=== PATIENT | male | born 1940 | race Caucasian/White ===

== ENCOUNTER 2022-01-27 13:46 | Inpatient (IN) | payer MEDICARE, OTHER ==
[~2022-01-27] VITALS: Ht 180.3 cm; Wt 76.2 kg
[2022-01-27] MEDS ORDERED: MEMA5TAB42 PO ×2 (13:58→15:26)
[2022-01-27] MEDS ORDERED: ATOR10TA PO ×2 (13:58→15:26)
[2022-01-27] MEDS ORDERED: GLIP5TAB13 PO ×2 (13:58→15:26)
[2022-01-27] MEDS ORDERED: RIVA3CAP17 PO ×2 (13:58→15:26)
[2022-01-27] MEDS ORDERED: METF-442 PO ×2 (13:58→15:26)
[2022-01-27 15:10] LABS: BILIRUBIN,URINE NEGATIVE (NEGATIVE); COLOR,URINE YELLOW (YELLOW); LEUKOCYTE ESTERASE ,URINE NEGATIVE (NEGATIVE); NITRITE, URINE NEGATIVE (NEGATIVE); PROTEIN,URINE NEGATIVE (NEGATIVE); UGLUCOSE >=1000 mg/dL (NEGATIVE); UROBILINOGEN,URINE 0.2 EU/dL (0.2)
[2022-01-27 15:17] LABS: CALCIUM, SERUM 9.6 mg/dL (8.5-10.1); CARBON DIOXIDE 23 mmol/L (21-32); CHLORIDE 105 mmol/L (98-107); GLUCOSE 335 mg/dL (74-106); POTASSIUM 4.1 mmol/L (3.5-5.1); SODIUM SERUM 139 mmol/L (136-145); UREA NITROGEN, BLOOD 25 mg/dL (7-18)
[2022-01-27 15:23] LABS: ALANINE AMINOTRANSFERASE 16 U/L (12-78); ALBUMIN 3.8 g/dL (3.4-5.0); ALCOHOL, BLOOD < 3 mg/dL (0-0); ALKALINE PHOSPHATASE 72 U/L (46-116); ASPARTATE AMINOTRANSFERASE 10 U/L (15-37); BILIRUBIN,DIRECT 0.1 mg/dL (0.0-0.2); BILIRUBIN,TOTAL 0.7 mg/dL (0.2-1.0); TOTAL PROTEIN, SERUM 7.8 g/dL (6.4-8.2)
[2022-01-27 15:24] LABS: BASOPHILS % (AUTO) 0.4 % (0.0-2.0); EOSINOPHILS % (AUTO) 2.7 % (0.0-6.0); HEMATOCRIT 46 % (39-51); HEMOGLOBIN 15.4 g/dL (13.5-17.5); LYMPHOCYTES # (AUTO) 2.4 K/uL (0.8-4.8); LYMPHOCYTES % (AUTO) 28.1 % (20.0-44.0); MEAN CORPUSCULAR HGB CONC 33 g/dl (31.0-36.0); MEAN CORPUSCULAR VOLUME 93 fL (80-96); MONOCYTES # (AUTO) 0.7 K/uL (0.1-1.30); MONOCYTES % (AUTO) 7.7 % (2.0-12.0); NEUTROPHILS # (AUTO) 5.2 K/uL (1.8-8.9); NEUTROPHILS % (AUTO) 61.1 % (43.0-81.0); PLATELET COUNT (AUTO) 242 K/uL (150-450); RED BLOOD CELL COUNT(AUTO) 4.98 MIL/uL (4.5-6.0); WHITE BLOOD COUNT (AUTO) 8.6 K/uL (4.3-11.0)
[2022-01-27 15:26] LABS: ACETAMINOPHEN < 2 ug/ml (10-30)
[2022-01-27] MEDS ORDERED: MULT-16 PO (15:26)
[2022-01-27] MEDS ORDERED: DOCU-141 PO (15:26)
[2022-01-27] MEDS ORDERED: QUET100T PO (15:26)
[2022-01-27] MEDS ORDERED: CHOL100043 PO (15:26)
[2022-01-27 15:38] LABS: SERUM AMMONIA 11 umol/L (11-32)
[2022-01-27] MEDS ORDERED: AZITHROMYCIN 500 MG in IV D5W 250 ML IV ONE (17:00)
[2022-01-27] MEDS ORDERED: IV NS 0.9% 1,000 ML BAG IV ONE (17:00)
[2022-01-27] MEDS ORDERED: CEFTRIAXONE 1GM BAG (ER ONLY) 50 ML IV ONE ×2 (18:12→19:00)
[2022-01-27] MEDS ORDERED: ACETAMINOPHEN 325 MG TABLET PO PRN (18:30)
[2022-01-27] MEDS ORDERED: Z GUARD REMEDY 4 OZ OINT TP PRN (18:30)
[2022-01-27] MEDS ORDERED: IV LR 1000 ML 1,000 ML IV PRN (18:30)
[2022-01-27] MEDS ORDERED: ONDANSETRON HCL/PF 4 MG/2 ML VIAL IVP PRN (18:30)
[2022-01-27 18:38] VITALS: BP 126/72
[2022-01-27] MEDS: IV NS 0.9% 1,000 ML IV PRN (19:34)
[2022-01-27] MEDS: ENOXAPARIN SODIUM 40 MG/0.4 ML DISP.SYRIN SQ SCH (19:37)
[2022-01-27 20:00] VITALS: BP 129/70
[2022-01-27] MEDS: DOXYCYCLINE 100 MG in IV D5W 100 ML IV SCH (21:00)
[2022-01-27] MEDS: MEMANTINE HCL 5 MG TABLET PO SCH (21:18)
[2022-01-28] VITALS: BP 125/71
[2022-01-28 04:00] VITALS: BP 140/72
[2022-01-28] MEDS: IV NS 0.9% 1,000 ML IV PRN (06:26)
[2022-01-28 07:03] LABS: BASOPHILS % (AUTO) 0.5 % (0.0-2.0); EOSINOPHILS % (AUTO) 3.1 % (0.0-6.0); HEMATOCRIT 41 % (39-51); HEMOGLOBIN 13.8 g/dL (13.5-17.5); LYMPHOCYTES # (AUTO) 1.9 K/uL (0.8-4.8); LYMPHOCYTES % (AUTO) 29.5 % (20.0-44.0); MEAN CORPUSCULAR HGB CONC 34 g/dl (31.0-36.0); MEAN CORPUSCULAR VOLUME 92 fL (80-96); MONOCYTES # (AUTO) 0.5 K/uL (0.1-1.30); MONOCYTES % (AUTO) 7.8 % (2.0-12.0); NEUTROPHILS # (AUTO) 3.9 K/uL (1.8-8.9); NEUTROPHILS % (AUTO) 59.1 % (43.0-81.0); PLATELET COUNT (AUTO) 218 K/uL (150-450); RED BLOOD CELL COUNT(AUTO) 4.48 MIL/uL (4.5-6.0); WHITE BLOOD COUNT (AUTO) 6.6 K/uL (4.3-11.0)
[2022-01-28 08:00] VITALS: BP 134/77
[2022-01-28 08:04] LABS: ALBUMIN 3.1 g/dL (3.4-5.0); BILIRUBIN,TOTAL 0.9 mg/dL (0.2-1.0); CALCIUM, SERUM 8.2 mg/dL (8.5-10.1); CREATININE 0.7 mg/dL (0.6-1.3); MAGNESIUM 2.1 mg/dL (1.8-2.4); PHOSPHORUS 3.2 mg/dL (2.5-4.9); POTASSIUM 3.9 mmol/L (3.5-5.1); TOTAL PROTEIN, SERUM 6.5 g/dL (6.4-8.2)
[2022-01-28 08:13] LABS: THYROID STIMULATING HORMONE 1.775 uIU/mL (0.358-3.74)
[2022-01-28] MEDS: RIVASTIGMINE TARTRATE 1.5 MG CAPSULE PO SCH ×2 (08:35→17:10)
[2022-01-28] MEDS: PANTOPRAZOLE 40 MG TABLET.DR PO SCH (08:35)
[2022-01-28] MEDS: MEMANTINE HCL 5 MG TABLET PO SCH ×2 (08:35→20:02)
[2022-01-28] MEDS: DOCUSATE SODIUM 100 MG CAPSULE PO SCH (08:36)
[2022-01-28] MEDS: QUETIAPINE FUMARATE 100 MG TABLET PO SCH ×2 (08:36→17:10)
[2022-01-28] MEDS: CHOLECALCIFEROL 1,000 UNIT TABLET (VIT D3) PO SCH (08:36)
[2022-01-28] MEDS ORDERED: glipiZIDE 5 MG TABLET PO SCH (09:00)
[2022-01-28] MEDS: DOXYCYCLINE 100 MG in IV D5W 100 ML IV SCH (09:28)
[2022-01-28 12:00] VITALS: BP 125/75
[2022-01-28] MEDS ORDERED: DEXTROSE 50%-WATER 50 ML DISP.SYRIN IV PRN (14:00)
[2022-01-28] MEDS ORDERED: OLANZAPINE 10 MG VIAL IM ONE (14:00)
[2022-01-28 16:00] VITALS: BP 138/92
[2022-01-28] MEDS: ATORVASTATIN 10 MG TABLET PO SCH (17:12)
[2022-01-28] MEDS: CEFTRIAXONE 1 G in IV D5W 50 ML IV SCH (17:21)
[2022-01-28] MEDS: ENOXAPARIN SODIUM 40 MG/0.4 ML DISP.SYRIN SQ SCH (17:33)
[2022-01-28 20:00] VITALS: BP 134/79
[2022-01-28] MEDS: DOXYCYCLINE HYCLATE (100 MG) 100 MG TABLET PO SCH (20:02)
[2022-01-29] VITALS: BP 113/88
[2022-01-29 04:00] VITALS: BP 141/75
[2022-01-29 07:00] VITALS: BP 148/70
[2022-01-29 07:25] LABS: BASOPHILS % (AUTO) 0.4 % (0.0-2.0); EOSINOPHILS % (AUTO) 4.1 % (0.0-6.0); HEMATOCRIT 40 % (39-51); HEMOGLOBIN 13.7 g/dL (13.5-17.5); LYMPHOCYTES # (AUTO) 1.6 K/uL (0.8-4.8); LYMPHOCYTES % (AUTO) 28.6 % (20.0-44.0); MEAN CORPUSCULAR HGB CONC 35 g/dl (31.0-36.0); MEAN CORPUSCULAR VOLUME 91 fL (80-96); MONOCYTES # (AUTO) 0.4 K/uL (0.1-1.30); MONOCYTES % (AUTO) 7.8 % (2.0-12.0); NEUTROPHILS # (AUTO) 3.3 K/uL (1.8-8.9); NEUTROPHILS % (AUTO) 59.1 % (43.0-81.0); PLATELET COUNT (AUTO) 207 K/uL (150-450); RED BLOOD CELL COUNT(AUTO) 4.39 MIL/uL (4.5-6.0); WHITE BLOOD COUNT (AUTO) 5.6 K/uL (4.3-11.0)
[2022-01-29 07:36] LABS: CALCIUM, SERUM 8.3 mg/dL (8.5-10.1); CREATININE 0.7 mg/dL (0.6-1.3); PHOSPHORUS 3.3 mg/dL (2.5-4.9); POTASSIUM 3.8 mmol/L (3.5-5.1)
[2022-01-29 08:00] VITALS: BP 148/70
[2022-01-29] MEDS: CHOLECALCIFEROL 1,000 UNIT TABLET (VIT D3) PO SCH (08:14)
[2022-01-29] MEDS: RIVASTIGMINE TARTRATE 1.5 MG CAPSULE PO SCH ×2 (08:14→17:15)
[2022-01-29] MEDS: DOXYCYCLINE HYCLATE (100 MG) 100 MG TABLET PO SCH ×2 (08:14→20:56)
[2022-01-29] MEDS: PANTOPRAZOLE 40 MG TABLET.DR PO SCH (08:14)
[2022-01-29] MEDS: BLOOD SUGAR DIAGNOSTIC 1 EACH STRIP IN SCH ×4 (08:14→22:17)
[2022-01-29] MEDS: MEMANTINE HCL 5 MG TABLET PO SCH ×2 (08:14→20:56)
[2022-01-29] MEDS: QUETIAPINE FUMARATE 100 MG TABLET PO SCH ×2 (08:14→17:15)
[2022-01-29] MEDS: DOCUSATE SODIUM 100 MG CAPSULE PO SCH (08:15)
[2022-01-29] MEDS: INSULIN REGULAR, HUMAN 100 UNIT/ML 3 ML VIAL SQ PRN ×4 (08:16→22:19)
[2022-01-29 16:00] VITALS: BP 126/83
[2022-01-29] MEDS: CEFTRIAXONE 1 G in IV D5W 50 ML IV SCH (17:12)
[2022-01-29] MEDS: ATORVASTATIN 10 MG TABLET PO SCH (17:14)
[2022-01-29] MEDS: ENOXAPARIN SODIUM 40 MG/0.4 ML DISP.SYRIN SQ SCH (17:44)
[2022-01-29 20:00] VITALS: BP 126/64
[2022-01-30 04:00] VITALS: BP 128/62
[2022-01-30] MEDS: PANTOPRAZOLE 40 MG TABLET.DR PO SCH (07:44)
[2022-01-30] MEDS: BLOOD SUGAR DIAGNOSTIC 1 EACH STRIP IN SCH ×2 (08:08→11:47)
[2022-01-30] MEDS: INSULIN REGULAR, HUMAN 100 UNIT/ML 3 ML VIAL SQ PRN ×2 (08:13→11:49)
[2022-01-30] MEDS: CHOLECALCIFEROL 1,000 UNIT TABLET (VIT D3) PO SCH (09:24)
[2022-01-30] MEDS: DOXYCYCLINE HYCLATE (100 MG) 100 MG TABLET PO SCH (09:24)
[2022-01-30] MEDS: DOCUSATE SODIUM 100 MG CAPSULE PO SCH (09:24)
[2022-01-30] MEDS: MEMANTINE HCL 5 MG TABLET PO SCH (09:24)
[2022-01-30] MEDS: RIVASTIGMINE TARTRATE 1.5 MG CAPSULE PO SCH (09:24)
[2022-01-30] MEDS: QUETIAPINE FUMARATE 100 MG TABLET PO SCH (09:24)
[2022-01-30 11:00] VITALS: BP 172/96
[2022-01-30 12:00] VITALS: BP 172/96
[2022-01-30] MEDS ORDERED: DOXY-326 PO (13:06)
[2022-01-30] MEDS ORDERED: CEFU500T66 PO (13:06)
[2022-01-30] MEDS ORDERED: ALPRAZOLAM 0.5 MG TABLET PO ONE (14:00)
== END 2022-01-30 16:27 | DRG 193 ==
LOC: ER 13:51 → TELE1 17:41 → MEDSG1 01-29 07:29
PROVIDERS: ADMIT Nurse Practitioner Acute Care; ATTEND Nurse Practitioner Acute Care
DX: J15.9 Unspecified bacterial pneumonia (principal); G93.41 Metabolic encephalopathy; N17.0 Acute kidney failure with tubular necrosis; E87.2 Acidosis; R62.7 Adult failure to thrive; E11.65 Type 2 diabetes mellitus with hyperglycemia; Z20.822 Contact with and (suspected) exposure to COVID-19; E78.5 Hyperlipidemia, unspecified; I10 Essential (primary) hypertension; F03.90 Unspecified dementia, unspecified severity, without behavioral disturbance, psychotic disturbance, mood disturbance, and anxiety; Z79.84 Long term (current) use of oral hypoglycemic drugs; Z79.899 Other long term (current) drug therapy; F29 Unspecified psychosis not due to a substance or known physiological condition
CPT/HCPCS: 36415; 70450-TC; 71045-TC; 80048-TC; 80053-TC; 80061-TC; 80076-TC; 82140-TC; 82962-TC; 83540-TC; 83605-TC; 83735-TC; 84100-TC; 84443-TC; 84484-TC; 85025-TC; 85730-TC; 87040-TC; C9803; G0378; G0480; J0456; J0696; J1650; J1815; J3490; J7030; J7050; J7060

== ENCOUNTER 2022-04-25 15:02 | Emergency (ER) | payer MEDICARE ==
[~2022-04-25] VITALS: Ht 180.3 cm; Wt 75.3 kg
[~2022-04-25 15:02] MED LIST: ATOR10TA PO; CEFU500T66 PO; CHOL100043 PO; DOCU-141 PO; DOXY-326 PO; GLIP5TAB13 PO; MEMA5TAB42 PO; METF-442 PO; MULT-16 PO; QUET100T PO; RIVA3CAP17 PO
--- NOTE | 2022-04-25 16:01 | NUR ---
TO ER BED 10, DROPPED OFF BY FACILITY PT HAS ABDOMINAL PAIN X1 WEEK AND ADVANCED MEMORY LOSS X1 DAY, CONFUSED, CONNECTED TO MONITOR, AWAITING MD SEGURA
--- NOTE | 2022-04-25 16:56 | NUR ---
LAB AT BEDSIDE
[2022-04-25 17:02] LABS: BILIRUBIN,URINE NEGATIVE (NEGATIVE); COLOR,URINE YELLOW (YELLOW); LEUKOCYTE ESTERASE ,URINE NEGATIVE (NEGATIVE); NITRITE, URINE NEGATIVE (NEGATIVE); PH,URINE 5.5 (5.0-8.0); PROTEIN,URINE NEGATIVE (NEGATIVE); UGLUCOSE >=1000 mg/dL (NEGATIVE); UROBILINOGEN,URINE 0.2 EU/dL (0.2)
[2022-04-25 17:08] LABS: BASOPHILS # (AUTO) 0.1 K/uL (0.0-0.2); BASOPHILS % (AUTO) 0.9 % (0.0-2.0); EOSINOPHILS % (AUTO) 2.4 % (0.0-6.0); HEMATOCRIT 44 % (39-51); HEMOGLOBIN 14.7 g/dL (13.5-17.5); LYMPHOCYTES # (AUTO) 2.3 K/uL (0.8-4.8); LYMPHOCYTES % (AUTO) 33.4 % (20.0-44.0); MEAN CORPUSCULAR HGB CONC 34 g/dl (31.0-36.0); MEAN CORPUSCULAR VOLUME 92 fL (80-96); MONOCYTES # (AUTO) 0.6 K/uL (0.1-1.30); MONOCYTES % (AUTO) 8.4 % (2.0-12.0); NEUTROPHILS # (AUTO) 3.8 K/uL (1.8-8.9); NEUTROPHILS % (AUTO) 54.9 % (43.0-81.0); PLATELET COUNT (AUTO) 253 K/uL (150-450); RED BLOOD CELL COUNT(AUTO) 4.75 MIL/uL (4.5-6.0)
[2022-04-25 17:33] LABS: CREATININE 0.9 mg/dL (0.6-1.3); POTASSIUM 4.1 mmol/L (3.5-5.1)
--- NOTE | 2022-04-25 17:34 | NUR ---
COVID SWAB DONE AND SENT TO LAB
--- NOTE | 2022-04-25 17:37 | NUR ---
PER LAB GLUCOSE 411, MD AWARE
[2022-04-25 17:53] LABS: ALBUMIN 3.5 g/dL (3.4-5.0); BILIRUBIN,DIRECT 0.1 mg/dL (0.0-0.2); BILIRUBIN,TOTAL 0.7 mg/dL (0.2-1.0); TOTAL PROTEIN, SERUM 7.5 g/dL (6.4-8.2)
[2022-04-25] MEDS ORDERED: INSULIN REGULAR, HUMAN 100 UNIT/ML 10 ML VIAL ONE (18:07)
[2022-04-25] MEDS ORDERED: POTASSIUM CHLORIDE 20 MEQ TAB.PRT.SR PO ONE (18:07)
[2022-04-25] MEDS: INSULIN REGULAR, HUMAN 100 UNIT/ML 10 ML VIAL SQ ONE (18:09)
[2022-04-25] MEDS: POTASSIUM CHLORIDE 20 MEQ TAB.PRT.SR PO ONE (18:12)
--- NOTE | 2022-04-25 18:13 | NUR ---
[facility] TRANSPORT ETA [facility].
--- NOTE | 2022-04-25 18:24 | NUR ---
CALLED HILDA FOR REPORT, NURSE WAS UNAVAILABLE, INFORMED FACILITY PT WILL BE GOING BACK TO THE FACILITY.
--- NOTE | 2022-04-25 18:51 | NUR ---
BLOOD SUGAR 317. LAW AWARE WITH NO NEW ORDERS. OK TO DISCHARGE THE PATIENT PER LAW.
--- NOTE | 2022-04-25 18:52 | NUR ---
REPORT GIVEN TO AMBULANCE STAFF
--- NOTE | 2022-04-25 18:52 | NUR ---
Patient discharged to home in stable condition. Written and verbal after care instructions given. Patient verbalizes understanding of instruction.
[2022-04-25 18:53] VITALS: BP 131/74
[2022-04-29] MEDS ORDERED: INSU100I30 SQ (11:28)
[2022-04-29] MEDS ORDERED: INSU100V28 SQ (11:32)
== END 2022-04-25 18:56 ==
LOC: ER 15:07
DX: E11.65 Type 2 diabetes mellitus with hyperglycemia (principal); Z79.84 Long term (current) use of oral hypoglycemic drugs; F03.90 Unspecified dementia, unspecified severity, without behavioral disturbance, psychotic disturbance, mood disturbance, and anxiety; E78.5 Hyperlipidemia, unspecified; I10 Essential (primary) hypertension; Z20.822 Contact with and (suspected) exposure to COVID-19
CPT/HCPCS: 99291; 87426; 96372; 85025; 80048; 83690; 80076; 81003; 36415; 82962; J1815; C9803

== ENCOUNTER 2022-04-27 14:58 | Inpatient (IN) | payer MEDICARE, OTHER ==
[~2022-04-27] VITALS: Ht 185.4 cm; Wt 73.5 kg
[2022-04-27] MEDS ORDERED: ATOR10TA PO (15:16)
[2022-04-27] MEDS ORDERED: IV NS 0.9% 1,000 ML BAG IV ONE ×2 (15:30→17:00)
--- NOTE | 2022-04-27 15:34 | NUR ---
PRINTED CIRCUIT BOARD PREASSEMBLER AT BEDSIDE FOR XRAY
--- NOTE | 2022-04-27 15:44 | NUR ---
IV LINE ESTABLISHED ON LAC #20, BLOOD DRAWN AND SENT TO LAB.
[2022-04-27 15:57] LABS: BASOPHILS % (AUTO) 0.6 % (0.0-2.0); EOSINOPHILS % (AUTO) 1.8 % (0.0-6.0); HEMATOCRIT 43 % (39-51); HEMOGLOBIN 14.2 g/dL (13.5-17.5); LYMPHOCYTES # (AUTO) 1.4 K/uL (0.8-4.8); LYMPHOCYTES % (AUTO) 25.9 % (20.0-44.0); MEAN CORPUSCULAR HGB CONC 33 g/dl (31.0-36.0); MEAN CORPUSCULAR VOLUME 92 fL (80-96); MONOCYTES # (AUTO) 0.5 K/uL (0.1-1.30); MONOCYTES % (AUTO) 8.6 % (2.0-12.0); NEUTROPHILS # (AUTO) 3.3 K/uL (1.8-8.9); NEUTROPHILS % (AUTO) 63.1 % (43.0-81.0); PLATELET COUNT (AUTO) 235 K/uL (150-450); RED BLOOD CELL COUNT(AUTO) 4.63 MIL/uL (4.5-6.0); WHITE BLOOD COUNT (AUTO) 5.3 K/uL (4.3-11.0)
[2022-04-27 16:24] LABS: ALBUMIN 3.5 g/dL (3.4-5.0); BILIRUBIN,DIRECT 0.1 mg/dL (0.0-0.2); BILIRUBIN,TOTAL 0.6 mg/dL (0.2-1.0); CALCIUM, SERUM 8.8 mg/dL (8.5-10.1); CREATININE 0.9 mg/dL (0.6-1.3); POTASSIUM 4.4 mmol/L (3.5-5.1); TOTAL PROTEIN, SERUM 7.3 g/dL (6.4-8.2)
--- NOTE | 2022-04-27 16:42 | NUR ---
URINE SAMPLE COLLECTED AND SENT TO LAB
[2022-04-27] MEDS ORDERED: INSULIN REGULAR, HUMAN 100 UNIT/ML 10 ML VIAL IV ONE (17:00)
[2022-04-27] MEDS ORDERED: INSULIN REGULAR, HUMAN 100 UNIT/ML 10 ML VIAL ONE (17:08)
[2022-04-27 17:37] LABS: BILIRUBIN,URINE NEGATIVE (NEGATIVE); COLOR,URINE YELLOW (YELLOW); LEUKOCYTE ESTERASE ,URINE NEGATIVE (NEGATIVE); NITRITE, URINE NEGATIVE (NEGATIVE); PH,URINE 5.5 (5.0-8.0); PROTEIN,URINE NEGATIVE (NEGATIVE); UGLUCOSE >=1000 mg/dL (NEGATIVE); UROBILINOGEN,URINE 0.2 EU/dL (0.2)
--- NOTE | 2022-04-27 17:43 | NUR ---
COVID SWAB COLLECTED AND SENT TO LAB
[2022-04-27 17:45] LABS: BACTERIA,URINE None seen /HPF (None Seen); RBC,URINE 0-2 /HPF (0-2); SQUAMOUS EPITHELIAL CELL,UR 0-2 /HPF (None Seen); WBC,URINE 0-2 /HPF (0-3)
--- NOTE | 2022-04-27 17:45 | NUR ---
PANEL ON-CALL PAGED AGAIN
--- NOTE | 2022-04-27 19:25 | NUR ---
BS POC ACCUCHECK AFTER INSULIN 10 UNITS: BS 330
--- NOTE | 2022-04-27 19:58 | NUR ---
REPORT GIVEN TO EKTA MalcolmW RN FOR FOUZIA
[2022-04-27 20:45] VITALS: BP 141/83
--- NOTE | 2022-04-27 20:45 | NUR ---
PT TAKEN TO [facility]W [facility]. ALL BELONGINGS WITH PT. VSS
--- NOTE | 2022-04-27 21:30 | NUR ---
PARKING METER SERVICERMANAGER RN CASE NOTES: RECEIVED PATIENT FROM ER VIA [facility] AT 2030 AWAKE, NO COMPLAIN OF PAIN AND DISCOMFORT AT THIS TIME, ON ROOM AIR SATURATING WELL, PATIENT IS A/OX2-3 AMBULATORY WANDERING AND NEEDS TO BE REDIRECTED, SKIN ASSESSMENT DONE PICTURE TAKEN AND DOCUMENTED, INVENTORIES DONE, PATIENT WAS ORIENTED TO ROOM REMIND TO USE CALL LIGHTS WHEN NEEDED ASSISTANCE, V/S ARE WNL, ON TELE MONITOR-[id number], WITH IV LINE AT LAC #20 WITH ONGOING 0.9NSS 500ML WIDE OPEN THEN 0.9NSS@100ML/HR INFUSING WELL, PATIENT WAS PLACED COMFORTABLY IN BED, KEPT CLEAN AND DRY ALL NEEDS MET WILL CONTINUE TO MONITOR.
[2022-04-27] MEDS ORDERED: Z GUARD REMEDY 4 OZ OINT TP PRN (22:00)
[2022-04-27] MEDS ORDERED: IV NS 0.9% 500 ML IV ONE (22:00)
[2022-04-27] MEDS ORDERED: ONDANSETRON HCL/PF 4 MG/2 ML VIAL IVP PRN (22:00)
[2022-04-27] MEDS ORDERED: DEXTROSE 50%-WATER 50 ML DISP.SYRIN IV PRN (22:00)
[2022-04-27] MEDS ORDERED: ACETAMINOPHEN 325 MG TABLET PO PRN (22:00)
[2022-04-27] MEDS: BLOOD SUGAR DIAGNOSTIC 1 EACH STRIP IN SCH (22:00)
[2022-04-27] MEDS ORDERED: IV NS 0.9% 1,000 ML IV PRN (22:00)
[2022-04-27] MEDS ORDERED: INSULIN REGULAR, HUMAN 100 UNIT/ML 3 ML VIAL ONE (22:51)
[2022-04-27] MEDS: ENOXAPARIN SODIUM 40 MG/0.4 ML DISP.SYRIN SQ SCH (22:57)
[2022-04-27] MEDS: INSULIN REGULAR, HUMAN 100 UNIT/ML 3 ML VIAL SQ PRN (23:01)
[2022-04-28] MEDS: BLOOD SUGAR DIAGNOSTIC 1 EACH STRIP IN SCH ×6 (01:00→21:35)
[2022-04-28] MEDS: INSULIN REGULAR, HUMAN 100 UNIT/ML 3 ML VIAL SQ PRN ×5 (01:50→21:27)
--- NOTE | 2022-04-28 05:35 | NUR ---
RN NOTES: BLOOD SUGAR-82 NO INSULIN GIVEN PER SLIDING SCALE
--- NOTE | 2022-04-28 06:08 | NUR ---
MS RN CLOSING NOTES: RECEIVED PATIENT SLEEP IN BED COMFORTABLY, BED IN LOW POSITION, CALL LIGHTS WITHIN REACH, ON ROOM AIR SATURATING WELL, WITH IV LINE AT LAC#20 WITH ONGOING NSS@100ML/HR INFUSING WELL, PATIENT HAS EPISODE OF CONFUSION AND NEEDS TO BE REDIRECTED, PATIENT KEPT CLEAN AND DRY ALL NEEDS MET ENDORSE TO INCOMING SHIFT.
[2022-04-28 06:21] LABS: BASOPHILS % (AUTO) 0.5 % (0.0-2.0); EOSINOPHILS % (AUTO) 2.3 % (0.0-6.0); HEMATOCRIT 39 % (39-51); HEMOGLOBIN 13.4 g/dL (13.5-17.5); LYMPHOCYTES # (AUTO) 3.8 K/uL (0.8-4.8); LYMPHOCYTES % (AUTO) 48.4 % (20.0-44.0); MEAN CORPUSCULAR HGB CONC 35 g/dl (31.0-36.0); MEAN CORPUSCULAR VOLUME 90 fL (80-96); MONOCYTES # (AUTO) 0.8 K/uL (0.1-1.30); MONOCYTES % (AUTO) 9.7 % (2.0-12.0); NEUTROPHILS # (AUTO) 3.1 K/uL (1.8-8.9); NEUTROPHILS % (AUTO) 39.1 % (43.0-81.0); PLATELET COUNT (AUTO) 243 K/uL (150-450); RED BLOOD CELL COUNT(AUTO) 4.28 MIL/uL (4.5-6.0); WHITE BLOOD COUNT (AUTO) 7.8 K/uL (4.3-11.0)
[2022-04-28 06:37] LABS: CALCIUM, SERUM 8.3 mg/dL (8.5-10.1); CARBON DIOXIDE 26 mmol/L (21-32); CHLORIDE 115 mmol/L (98-107); CREATININE 0.6 mg/dL (0.6-1.3); GLUCOSE 74 mg/dL (74-106); MAGNESIUM 2.1 mg/dL (1.8-2.4); POTASSIUM 3.3 mmol/L (3.5-5.1); SODIUM SERUM 147 mmol/L (136-145); UREA NITROGEN, BLOOD 21 mg/dL (7-18)
--- NOTE | 2022-04-28 07:30 | NUR ---
MS RN OPENING NOTES RECEIVED PATIENT ON BED, AWAKE AND A/O X4. ON ROOM AIR TOLERATING WELL. NO SOB NOTED. NOT IN DISTRESS. WITH NO COMPLAINTS OF PAIN OR DISCOMFORT AT THIS TIME. WITH IV ACCESS AT THE LEFT AC G20 WITH NS AT 100ML/HR INFUSING WELL. SAFETY MEASURES IN PLACED. CALL LIGHT WITHIN REACH. BED ON LOWEST LOCKED POSITION, SIDE RAILS UP X2. WILL CONTINUE TO MONITOR.
[2022-04-28 08:00] VITALS: BP 120/57
[2022-04-28] MEDS: RIVASTIGMINE TARTRATE 1.5 MG CAPSULE PO SCH ×2 (09:17→21:29)
[2022-04-28] MEDS: MEMANTINE HCL 5 MG TABLET PO SCH ×2 (09:17→21:28)
[2022-04-28] MEDS: QUETIAPINE FUMARATE 100 MG TABLET PO SCH ×2 (09:17→16:24)
[2022-04-28] MEDS: glipiZIDE 5 MG TABLET PO SCH ×2 (09:18→16:24)
[2022-04-28] MEDS: ATORVASTATIN 10 MG TABLET PO SCH (09:18)
[2022-04-28] MEDS ORDERED: POTASSIUM CHLORIDE 20 MEQ TAB.PRT.SR PO SCH (09:30)
[2022-04-28 17:00] VITALS: BP 107/61
--- NOTE | 2022-04-28 18:50 | NUR ---
MS RN CLOSING NOTES PATIENT ON BED, AWAKE AND A/O X4. ON ROOM AIR TOLERATING WELL. NO SOB NOTED. NOT IN DISTRESS. WITH NO COMPLAINTS OF PAIN OR DISCOMFORT AT THIS TIME. WITH IV ACCESS AT THE LEFT AC G20 WITH NS AT 100ML/HR INFUSING WELL. DUE MEDS GIVEN. SAFETY MEASURES IN PLACED. CALL LIGHT WITHIN REACH. BED ON LOWEST LOCKED POSITION, SIDE RAILS UP X2. WILL ENDORSE TO NEXT SHIFT FOR FOUZIA.
--- NOTE | 2022-04-28 19:43 | NUR ---
RN OPENING NOTE PATIENT ASLEEP IN BED. A/OX2. NO S/S OF DISTRESS, BREATHING W/O DIFFICULTY ON ROOM AIR. LAC #20 INTACT AND PATENT W/ NS 100ML/HR. SAFETY MEASURES IN PLACE: BED LOCKED AND AT LOWEST POSITION, RAILS UP X2, CALL CASTRO WITHIN REACH. WILL CONTINUE TO MONITOR PATIENT.
[2022-04-28 20:00] VITALS: BP 115/67
[2022-04-28] MEDS: INSULIN GLARGINE, 100 UNIT/ML CARTRIDGE SQ SCH (21:28)
[2022-04-28] MEDS: ENOXAPARIN SODIUM 40 MG/0.4 ML DISP.SYRIN SQ SCH (21:28)
[2022-04-29] MEDS: BLOOD SUGAR DIAGNOSTIC 1 EACH STRIP IN SCH ×6 (00:47→20:55)
--- NOTE | 2022-04-29 06:47 | NUR ---
RN CLOSING NOTE PATIENT ASLEEP IN BED. A/OX2. NO S/S OF DISTRESS, BREATHING W/O DIFFICULTY ON ROOM AIR. LAC #20 INTACT AND PATENT W/ NS 100ML/HR. SAFETY MEASURES IN PLACE: BED LOCKED AND AT LOWEST POSITION, RAILS UP X2, CALL CASTRO WITHIN REACH. WILL ENDORSE TO THE NEXT SHIFT FOR FOUZIA.
[2022-04-29 08:00] VITALS: BP 140/78
[2022-04-29] MEDS: glipiZIDE 5 MG TABLET PO SCH ×2 (08:02→16:51)
--- NOTE | 2022-04-29 08:22 | NUR ---
MS RN OPENING NOTES PATIENT ASLEEP IN BED. A/OX2 WITH PERIODS OF CONFUSION . NO S/S OF DISTRESS, BREATHING EVENLY AND UNLABORED ON ROOM AIR. LAC GAUGE # 20 . SAFETY MEASURES IN PLACE: BED LOCKED AND AT LOWEST POSITION, RAILS UP X2, CALL CASTRO WITHIN REACH. WILL CONTINUE TO MONITOR PATIENT.
[2022-04-29 08:57] LABS: BASOPHILS % (AUTO) 0.5 % (0.0-2.0); EOSINOPHILS % (AUTO) 2.6 % (0.0-6.0); HEMATOCRIT 43 % (39-51); HEMOGLOBIN 14.5 g/dL (13.5-17.5); LYMPHOCYTES # (AUTO) 1.5 K/uL (0.8-4.8); LYMPHOCYTES % (AUTO) 26.6 % (20.0-44.0); MEAN CORPUSCULAR HGB CONC 34 g/dl (31.0-36.0); MEAN CORPUSCULAR VOLUME 91 fL (80-96); MONOCYTES # (AUTO) 0.5 K/uL (0.1-1.30); NEUTROPHILS # (AUTO) 3.6 K/uL (1.8-8.9); NEUTROPHILS % (AUTO) 62.3 % (43.0-81.0); PLATELET COUNT (AUTO) 254 K/uL (150-450); RED BLOOD CELL COUNT(AUTO) 4.74 MIL/uL (4.5-6.0); WHITE BLOOD COUNT (AUTO) 5.8 K/uL (4.3-11.0)
[2022-04-29 09:08] LABS: CALCIUM, SERUM 8.3 mg/dL (8.5-10.1); CARBON DIOXIDE 26 mmol/L (21-32); CHLORIDE 105 mmol/L (98-107); CREATININE 0.8 mg/dL (0.6-1.3); GLUCOSE 333 mg/dL (74-106); PHOSPHORUS 3.3 mg/dL (2.5-4.9); POTASSIUM 3.8 mmol/L (3.5-5.1); SODIUM SERUM 136 mmol/L (136-145); UREA NITROGEN, BLOOD 15 mg/dL (7-18)
[2022-04-29] MEDS: RIVASTIGMINE TARTRATE 1.5 MG CAPSULE PO SCH ×2 (09:49→20:44)
[2022-04-29] MEDS: INSULIN REGULAR, HUMAN 100 UNIT/ML 3 ML VIAL SQ PRN ×3 (09:49→20:58)
[2022-04-29] MEDS: ATORVASTATIN 10 MG TABLET PO SCH (09:50)
[2022-04-29] MEDS: MEMANTINE HCL 5 MG TABLET PO SCH ×2 (09:50→20:44)
[2022-04-29] MEDS: QUETIAPINE FUMARATE 100 MG TABLET PO SCH ×2 (09:50→16:51)
[2022-04-29] MEDS ORDERED: INSU100I30 SQ (11:28)
[2022-04-29] MEDS ORDERED: INSU100V28 SQ (11:32)
[2022-04-29 16:00] VITALS: BP 101/77
--- NOTE | 2022-04-29 18:45 | NUR ---
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 MD MADE AWARE, BACTROBAN OINTMENT ORDERED.
--- NOTE | 2022-04-29 19:03 | NUR ---
MS RN CLOSING NOTES PATIENT IN BED. A/OX2 WITH PERIODS OF CONFUSION . NO S/S OF DISTRESS, BREATHING EVENLY AND UNLABORED ON ROOM AIR. LAC GAUGE # 20 .ALL DUE MEDS GIVEN AND TOLERATED WELL. SAFETY MEASURES IN PLACE: BED LOCKED AND AT LOWEST POSITION, RAILS UP X2, CALL CASTRO WITHIN REACH. WILL CONTINUE TO MONITOR PATIENT.WILL ENDORSE TO CLARISSA VALLECILLO RN FOR FOUZIA
--- NOTE | 2022-04-29 19:48 | NUR ---
MS RN OPENING NOTES RECEIVED PATIENT AWAKE IN BED. A/O X2 WITH PERIODS OF CONFUSION. PT STABLE ON ROOM AIR. NO SOB OR S/S OF RESPIRATORY DISTRESS. BREATHING EVEN AND UNLABORED. IV ACCESS LAC GAUGE # 20. SAFETY PRECAUTIONS IN PLACE. BED IN LOWEST LOCKED POSITION, HOB ELEVATED, SIDE RAILS UP X2, AND CALL LIGHT AND TABLE WITHIN REACH. ALL NEEDS MET AT THIS TIME.
[2022-04-29 20:00] VITALS: BP 126/74
[2022-04-29] MEDS: ENOXAPARIN SODIUM 40 MG/0.4 ML DISP.SYRIN SQ SCH (20:45)
[2022-04-29] MEDS: MUPIROCIN OINT 2% 22 GM TUBE NS SCH (20:45)
[2022-04-29] MEDS: INSULIN GLARGINE, 100 UNIT/ML CARTRIDGE SQ SCH (21:00)
[2022-04-30] MEDS: BLOOD SUGAR DIAGNOSTIC 1 EACH STRIP IN SCH ×3 (00:31→09:41)
[2022-04-30] MEDS: INSULIN REGULAR, HUMAN 100 UNIT/ML 3 ML VIAL SQ PRN (00:34)
--- NOTE | 2022-04-30 06:50 | NUR ---
MS RN CLOSING NOTES PATIENT AWAKE IN BED. A/O X2 WITH PERIODS OF CONFUSION. PT STABLE ON ROOM AIR. NO SOB OR S/S OF RESPIRATORY DISTRESS. BREATHING EVEN AND UNLABORED. IV ACCESS LAC GAUGE # 20. ALL DUE MEDS GIVEN ORDERED. SAFETY PRECAUTIONS IN PLACE AT ALL TIMES. BED IN LOWEST LOCKED POSITION, HOB ELEVATED, SIDE RAILS UP X2, AND CALL LIGHT AND TABLE WITHIN REACH. ALL NEEDS MET AT THIS TIME AND WILL ENDORSE TO ONCOMING NURSE FOR FOUZIA.
--- NOTE | 2022-04-30 07:30 | NUR ---
MS RN OPENING NOTES: RECEIVED PT IN BED ASLEEP AND EASY TO AROUSE WITH STIMULI. A/O X 2 WITH EPISODES OF CONFUSION. NO SOB OR CARDIAC DISTRESS NOTED, AFEBRILE. NOTED WITH IV ACCESS ON LAC g20 RUNNING NS @100ML/HR, PATENT AND INTACT. KEPT RESTED ADN COMFORTABLE. SAFETY PREC MAINTAINED: BED LOCKED AND IN LOWEST POSITION. SIDE RAILS UP X 2. CALL LIGHT IN EASY REACH FOR HELP/ASSISTANCE. WILL MONITOR THE PT ACCORDINGLY.
[2022-04-30] MEDS: glipiZIDE 5 MG TABLET PO SCH (07:36)
[2022-04-30] MEDS: MUPIROCIN OINT 2% 22 GM TUBE NS SCH (09:00)
[2022-04-30] MEDS: MEMANTINE HCL 5 MG TABLET PO SCH (09:12)
[2022-04-30] MEDS: RIVASTIGMINE TARTRATE 1.5 MG CAPSULE PO SCH (09:12)
[2022-04-30] MEDS: ATORVASTATIN 10 MG TABLET PO SCH (09:12)
[2022-04-30] MEDS: QUETIAPINE FUMARATE 100 MG TABLET PO SCH (09:13)
--- NOTE | 2022-04-30 10:41 | NUR ---
DISCHARGE NOTES: DC TO SNF, ACCOMPANIED BY RESIDENTIAL MORTGAGE MANAGER VIA GURNEY. PATIENT ALERT WITH EPISODES OF CONFUSION AND FORGETFULNESS. NO SOB OR CARDIAC DISTRESS NOTED ON ROOM AIR AND TOLERATING WELL. IV ACCES REMOVED, KEPT THE IDENTIFICATION BAND IN PLACE. DC INSTRUCTIONS AND PACKET GIVEN TO RESIDENTIAL MORTGAGE MANAGER. REPORT GIVEN TO AGUSTO IRAHETA. ALL NEEDS ATTENDED. VS WNL. PT STABLE WHEN LEFT THE UNIT.
== END 2022-04-30 11:00 | DRG 637 ==
LOC: ER 15:41 → TELE 19:53 → MED 04-28 00:48
PROVIDERS: ADMIT Nurse Practitioner Acute Care; ATTEND Registered Nurse
DX: E11.65 Type 2 diabetes mellitus with hyperglycemia (principal); G93.41 Metabolic encephalopathy; N17.0 Acute kidney failure with tubular necrosis; F03.91 Unspecified dementia, unspecified severity, with behavioral disturbance; E86.0 Dehydration; I10 Essential (primary) hypertension; E78.5 Hyperlipidemia, unspecified; Z79.84 Long term (current) use of oral hypoglycemic drugs; Z79.899 Other long term (current) drug therapy
CPT/HCPCS: 36415; 71045-TC; 80048-TC; 80076-TC; 81001; 82962-TC; 83690-TC; 83735-TC; 84100-TC; 85025-TC; 87081-TC; 97116-TC; 97530-TC; C9803; G0378; J1650; J1815; J7030; J7040

== ENCOUNTER 2024-09-01 10:58 | Inpatient (IN) | payer MEDICARE, OTHER ==
[~2024-09-01] VITALS: Ht 170.2 cm; Wt 59.9 kg
[~2024-09-01 10:58] MED LIST changes: +APIX5TAB GT; +CEFE1VIA3 IV; -CEFU500T66 PO; -DOXY-326 PO; +INSU100I30 SQ; +INSU100V28 SQ; +VANC750V IV
[2024-09-01] MEDS ORDERED: ACETAMINOPHEN 650 MG/SUPP.RECT RC ONE ×2 (11:15→11:23)
[2024-09-01 11:17] LABS: BASOPHILS # (AUTO) 0.2 K/uL (0.0-0.2); BASOPHILS % (AUTO) 0.6 % (0.0-2.0); EOSINOPHILS # (AUTO) 0.1 K/uL (0.0-0.7); EOSINOPHILS % (AUTO) 0.3 % (0.0-6.0); HEMATOCRIT 32 % (39-51); HEMOGLOBIN 9.9 g/dL (13.5-17.5); LYMPHOCYTES # (AUTO) 2.1 K/uL (0.8-4.8); LYMPHOCYTES % (AUTO) 7.4 % (20.0-44.0); MEAN CORPUSCULAR HEMOGLOBIN 31 PG (26.0-33.0); MEAN CORPUSCULAR HGB CONC 31 g/dl (31.0-36.0); MEAN CORPUSCULAR VOLUME 99 fL (80-96); MONOCYTES # (AUTO) 1.3 K/uL (0.1-1.30); MONOCYTES % (AUTO) 4.7 % (2.0-12.0); NEUTROPHILS # (AUTO) 24.5 K/uL (1.8-8.9); PLATELET COUNT (AUTO) 497 K/uL (150-450); RED BLOOD CELL COUNT(AUTO) 3.22 MIL/uL (4.5-6.0); RED CELL DISTRIBUTION WIDTH 16.2 % (11.5-15.0); WHITE BLOOD COUNT (AUTO) 28.1 K/uL (4.3-11.0)
[2024-09-01] MEDS: IV NS 0.9% 1,000 ML BAG IV ONE (11:25)
[2024-09-01] MEDS: ACETAMINOPHEN 650 MG/SUPP.RECT RC ONE (11:26)
[2024-09-01 11:41] LABS: INR 1.22 (0.91-1.10); PARTIAL THROMBOPLASTIN TIME 25.4 SEC (24.3-34.3); PROTHROMBIN TIME 12.8 SECS (9.2-11.1)
[2024-09-01 11:43] LABS: LACTIC ACID 1.7 mmol/L (0.4-2.0)
[2024-09-01] MEDS: MEROPENEM 1 G in IV NS 0.9% 100 ML IV ONE (11:49)
[2024-09-01] MEDS ORDERED: INSULIN REGULAR, HUMAN 100 UNIT/ML 10 ML VIAL ONE (11:54)
[2024-09-01 12:01] LABS: APPEARANCE,URINE Clear (CLEAR); COLOR,URINE YELLOW (YELLOW); PH,URINE 5.5 (5.0-8.0)
[2024-09-01 12:02] LABS: ALANINE AMINOTRANSFERASE 20 U/L (12-78); ALBUMIN 1.9 g/dL (3.4-5.0); ALKALINE PHOSPHATASE 102 U/L (46-116); ASPARTATE AMINOTRANSFERASE 14 U/L (15-37); BILIRUBIN,DIRECT 0.1 mg/dL (0.0-0.2); BILIRUBIN,TOTAL 0.3 mg/dL (0.2-1.0); CALCIUM, SERUM 8.4 mg/dL (8.5-10.1); CARBON DIOXIDE 26 mmol/L (21-32); CHLORIDE 123 mmol/L (98-107); CREATININE 2.6 mg/dL (0.6-1.3); POTASSIUM 4.7 mmol/L (3.5-5.1); TOTAL PROTEIN, SERUM 7.8 g/dL (6.4-8.2)
[2024-09-01 12:02] LABS: BILIRUBIN,URINE NEGATIVE (NEGATIVE); BLOOD, URINE SMALL Ery/uL (NEGATIVE); KETONES,URINE NEGATIVE (NEGATIVE); LEUKOCYTE ESTERASE ,URINE TRACE (NEGATIVE); PROTEIN,URINE 100 mg/dl (NEGATIVE); UROBILINOGEN,URINE 0.2 EU/dL (0.2)
[2024-09-01 12:03] LABS: NITRITE, URINE NEGATIVE (NEGATIVE)
[2024-09-01] MEDS: INSULIN REGULAR, HUMAN 100 UNIT/ML 10 ML VIAL IV ONE (12:17)
[2024-09-01 12:18] LABS: GLUCOSE 445 mg/dL (74-106); SODIUM SERUM 158 mmol/L (136-145)
[2024-09-01 12:19] LABS: UREA NITROGEN, BLOOD 93 mg/dL (7-18)
[2024-09-01 12:41] LABS: ADD URINE CULTURE YES; BACTERIA,URINE Few /HPF (None Seen); SQUAMOUS EPITHELIAL CELL,UR None Seen /HPF (None Seen); WBC,URINE 81-100 /HPF (0-3)
[2024-09-01] MEDS ORDERED: IPRA3AMP23 NEB (12:49)
[2024-09-01] MEDS ORDERED: BISA10SU11 RC (12:49)
[2024-09-01] MEDS ORDERED: NUT.237L31 GT (12:49)
[2024-09-01] MEDS ORDERED: OXYC5TAB3 PO (12:49)
[2024-09-01] MEDS ORDERED: MULT-213 GT (12:49)
[2024-09-01] MEDS ORDERED: INSU100V3 SQ (12:49)
[2024-09-01] MEDS ORDERED: LANS30CA56 GT (12:49)
[2024-09-01] MEDS ORDERED: COLL30OI TP (12:49)
[2024-09-01] MEDS ORDERED: LACT10SO3 GT (12:49)
[2024-09-01] MEDS ORDERED: ASCO-340 GT (12:49)
[2024-09-01] MEDS ORDERED: INSU100I26 SQ (12:49)
[2024-09-01] MEDS ORDERED: ACET650S11 RC (12:49)
[2024-09-01] MEDS ORDERED: ACET160L44 PO (12:49)
[2024-09-01] MEDS ORDERED: POLY17PO4 GT (12:49)
[2024-09-01] MEDS ORDERED: ZINC220C6 GT (12:49)
[2024-09-01] MEDS ORDERED: POVI1MED TP (12:49)
[2024-09-01] MEDS ORDERED: FERR300L GT (12:49)
[2024-09-01] MEDS ORDERED: ERGO500093 PO (12:49)
[2024-09-01 14:00] VITALS: BP 104/72; TEMP 98; O2SAT 99
[2024-09-01] MEDS ORDERED: ONDANSETRON HCL/PF 4 MG/2 ML VIAL IVP PRN (14:00)
[2024-09-01] MEDS ORDERED: ACETAMINOPHEN 650 MG/SUPP.RECT RC PRN (14:00)
[2024-09-01] MEDS ORDERED: BISACODYL SUPP (10 MG) 10 MG/SUPP.RECT SUPP.RECT RC PRN (14:00)
[2024-09-01] MEDS ORDERED: ACETAMINOPHEN 325 MG TABLET PO PRN (14:00)
[2024-09-01] MEDS ORDERED: MEROPENEM 1 G in IV NS 0.9% 100 ML IV SCH (14:30)
[2024-09-01] MEDS ORDERED: DEXTROSE 50%-WATER 50 ML DISP.SYRIN IV PRN (14:30)
[2024-09-01] MEDS: IV 1/2NS 1000 ML 1,000 ML IV SCH (15:25)
[2024-09-01] MEDS: APIXABAN 5 MG TABLET GT SCH (17:29)
[2024-09-01] MEDS: FERROUS SULFATE UDC 300 MG/5 ML UDC GT SCH (17:29)
[2024-09-01] MEDS: BLOOD SUGAR DIAGNOSTIC 1 EACH STRIP IN SCH (17:55)
[2024-09-01] MEDS: INSULIN REGULAR, HUMAN 100 UNIT/ML 3 ML VIAL SQ PRN (17:56)
[2024-09-01 18:00] VITALS: BP 105/64; TEMP 97.2; O2SAT 99
[2024-09-01 19:16] LABS: CALCIUM, SERUM 8.1 mg/dL (8.5-10.1); CARBON DIOXIDE 27 mmol/L (21-32); CREATININE 2.2 mg/dL (0.6-1.3); GLUCOSE 340 mg/dL (74-106); POTASSIUM 3.6 mmol/L (3.5-5.1)
[2024-09-01 19:29] LABS: CHLORIDE 130 mmol/L (98-107); SODIUM SERUM 165 mmol/L (136-145); UREA NITROGEN, BLOOD 84 mg/dL (7-18)
[2024-09-01 22:00] VITALS: BP 114/68; TEMP 97.9; O2SAT 99
[2024-09-01] MEDS: INSULIN GLARGINE, 100 UNIT/ML CARTRIDGE SQ SCH (22:00)
[2024-09-01] MEDS: MEROPENEM 500 MG in IV NS 0.9% 50 ML IV SCH (22:32)
[2024-09-01] MEDS: GLUCERNA 1.5 1,000 ML BOTTLE GT SCH (23:18)
[2024-09-02 04:00] VITALS: BP 121/54; TEMP 97.9; O2SAT 96
[2024-09-02 08:00] VITALS: BP 111/72; TEMP 97.9; O2SAT 94
[2024-09-02] MEDS: POLYETHYLENE GLYCOL 3350 17 GM POWD.PACK GT SCH (08:17)
[2024-09-02] MEDS: ASCORBIC ACID 500 MG TABLET GT SCH (08:17)
[2024-09-02] MEDS: PANTOPRAZOLE 40 MG VIAL IV SCH (08:17)
[2024-09-02] MEDS: ZINC SULFATE 220 MG CAPSULE GT SCH (08:17)
[2024-09-02] MEDS: THERAHONEY GEL 1.5 OZ TUBE TP SCH (08:17)
[2024-09-02] MEDS: MULTIVIT W/MINERALS 1 TAB TABLET GT SCH (08:17)
[2024-09-02 08:46] LABS: BASOPHILS # (AUTO) 0.1 K/uL (0.0-0.2); BASOPHILS % (AUTO) 0.3 % (0.0-2.0); EOSINOPHILS # (AUTO) 0.2 K/uL (0.0-0.7); EOSINOPHILS % (AUTO) 0.7 % (0.0-6.0); HEMATOCRIT 28 % (39-51); HEMOGLOBIN 8.9 g/dL (13.5-17.5); LYMPHOCYTES # (AUTO) 1.8 K/uL (0.8-4.8); LYMPHOCYTES % (AUTO) 8.1 % (20.0-44.0); MEAN CORPUSCULAR HEMOGLOBIN 31 PG (26.0-33.0); MEAN CORPUSCULAR HGB CONC 31 g/dl (31.0-36.0); MEAN CORPUSCULAR VOLUME 99 fL (80-96); MONOCYTES # (AUTO) 0.7 K/uL (0.1-1.30); MONOCYTES % (AUTO) 2.9 % (2.0-12.0); PLATELET COUNT (AUTO) 415 K/uL (150-450); RED BLOOD CELL COUNT(AUTO) 2.88 MIL/uL (4.5-6.0); RED CELL DISTRIBUTION WIDTH 16.8 % (11.5-15.0); WHITE BLOOD COUNT (AUTO) 22.8 K/uL (4.3-11.0)
[2024-09-02 09:38] LABS: ALANINE AMINOTRANSFERASE 20 U/L (12-78); ALBUMIN 1.8 g/dL (3.4-5.0); ALKALINE PHOSPHATASE 97 U/L (46-116); ASPARTATE AMINOTRANSFERASE 14 U/L (15-37); BILIRUBIN,TOTAL 0.3 mg/dL (0.2-1.0); CARBON DIOXIDE 26 mmol/L (21-32); GLUCOSE 223 mg/dL (74-106); MAGNESIUM 2.7 mg/dL (1.8-2.4); PHOSPHORUS 4.2 mg/dL (2.5-4.9); POTASSIUM 3.5 mmol/L (3.5-5.1); TOTAL PROTEIN, SERUM 6.8 g/dL (6.4-8.2); UREA NITROGEN, BLOOD 78 mg/dL (7-18)
[2024-09-02 09:50] LABS: CALCIUM, SERUM 8.5 mg/dL (8.5-10.1)
[2024-09-02 09:51] LABS: CHLORIDE 131 mmol/L (98-107); SODIUM SERUM 166 mmol/L (136-145)
[2024-09-02] MEDS: IV D5W 1,000 ML IV SCH (10:46)
[2024-09-02 12:00] VITALS: BP 108/61; TEMP 97.5; O2SAT 94
[2024-09-02] MEDS: LORAZEPAM INJ 2 MG/ML VIAL IV PRN (12:07)
[2024-09-02] MEDS ORDERED: DIATR MEGLU/DIATRIZOATE SODIUM 30 ML BOTTLE (GASTROGRAPHIN) ONE (15:30)
[2024-09-02 16:00] VITALS: BP 113/87; TEMP 98.1; O2SAT 95
[2024-09-02 19:59] LABS: CHOLESTEROL 102 mg/dL (<200); CREATINE KINASE, TOTAL 33 U/L (39-308); HDL CHOLESTEROL 21 mg/dL (40-60); LDL 51 mg/dL (0-99); TRIGLYCERIDES 212 mg/dL (30-150)
[2024-09-02 20:00] VITALS: BP 117/68; TEMP 97.9; O2SAT 97
[2024-09-03] VITALS: BP 106/63; TEMP 98.1; O2SAT 99
[2024-09-03 04:00] VITALS: BP 113/63; TEMP 97.5; O2SAT 98
[2024-09-03 06:29] LABS: BASOPHILS % (AUTO) 0.2 % (0.0-2.0); EOSINOPHILS # (AUTO) 0.3 K/uL (0.0-0.7); EOSINOPHILS % (AUTO) 2.1 % (0.0-6.0); HEMATOCRIT 26 % (39-51); HEMOGLOBIN 8.3 g/dL (13.5-17.5); LYMPHOCYTES # (AUTO) 1.8 K/uL (0.8-4.8); LYMPHOCYTES % (AUTO) 11.4 % (20.0-44.0); MEAN CORPUSCULAR HEMOGLOBIN 31 PG (26.0-33.0); MEAN CORPUSCULAR HGB CONC 32 g/dl (31.0-36.0); MEAN CORPUSCULAR VOLUME 97 fL (80-96); MONOCYTES # (AUTO) 0.8 K/uL (0.1-1.30); MONOCYTES % (AUTO) 4.7 % (2.0-12.0); NEUTROPHILS % (AUTO) 81.6 % (43.0-81.0); PLATELET COUNT (AUTO) 376 K/uL (150-450); RED CELL DISTRIBUTION WIDTH 16.8 % (11.5-15.0); WHITE BLOOD COUNT (AUTO) 15.9 K/uL (4.3-11.0)
[2024-09-03 06:48] LABS: CALCIUM, SERUM 8.3 mg/dL (8.5-10.1); CARBON DIOXIDE 29 mmol/L (21-32); CREATININE 1.7 mg/dL (0.6-1.3); GLUCOSE 257 mg/dL (74-106); POTASSIUM 4.4 mmol/L (3.5-5.1); UREA NITROGEN, BLOOD 66 mg/dL (7-18)
[2024-09-03 07:42] LABS: SODIUM SERUM 164 mmol/L (136-145)
[2024-09-03 07:43] LABS: CHLORIDE 128 mmol/L (98-107)
[2024-09-03 08:00] VITALS: BP 125/75; TEMP 98.2; O2SAT 100
[2024-09-03] MEDS: VANCOMYCIN 750 MG in IV D5W 250 ML IV SCH (08:21)
[2024-09-03] MEDS: OLANZAPINE 2.5 MG TABLET PO SCH (09:55)
[2024-09-03 12:00] VITALS: BP 125/75; TEMP 98.2; O2SAT 100
[2024-09-03] MEDS: GLUCERNA 1.2 1,000 ML BOTTLE NG SCH (12:03)
[2024-09-03 16:00] VITALS: BP 125/75; TEMP 98.1; O2SAT 100
[2024-09-03 20:00] VITALS: BP 113/62; TEMP 98; O2SAT 99
[2024-09-03] MEDS: INSULIN GLARGINE, 100 UNIT/ML CARTRIDGE SQ SCH (22:06)
[2024-09-04] VITALS: BP 113/63; TEMP 98.1; O2SAT 99
[2024-09-04 04:00] VITALS: BP 114/67; TEMP 98.5; O2SAT 99
[2024-09-04 06:37] LABS: BASOPHILS # (AUTO) 0.1 K/uL (0.0-0.2); BASOPHILS % (AUTO) 0.5 % (0.0-2.0); EOSINOPHILS # (AUTO) 0.7 K/uL (0.0-0.7); EOSINOPHILS % (AUTO) 5.6 % (0.0-6.0); HEMATOCRIT 24 % (39-51); HEMOGLOBIN 7.8 g/dL (13.5-17.5); LYMPHOCYTES # (AUTO) 1.6 K/uL (0.8-4.8); LYMPHOCYTES % (AUTO) 13.7 % (20.0-44.0); MEAN CORPUSCULAR HEMOGLOBIN 31 PG (26.0-33.0); MEAN CORPUSCULAR HGB CONC 32 g/dl (31.0-36.0); MEAN CORPUSCULAR VOLUME 97 fL (80-96); MONOCYTES # (AUTO) 0.6 K/uL (0.1-1.30); NEUTROPHILS # (AUTO) 8.8 K/uL (1.8-8.9); NEUTROPHILS % (AUTO) 75.2 % (43.0-81.0); PLATELET COUNT (AUTO) 322 K/uL (150-450); RED BLOOD CELL COUNT(AUTO) 2.52 MIL/uL (4.5-6.0); RED CELL DISTRIBUTION WIDTH 16.4 % (11.5-15.0); WHITE BLOOD COUNT (AUTO) 11.7 K/uL (4.3-11.0)
[2024-09-04 06:43] LABS: CALCIUM, SERUM 7.6 mg/dL (8.5-10.1); CARBON DIOXIDE 28 mmol/L (21-32); CHLORIDE 124 mmol/L (98-107); CREATININE 1.6 mg/dL (0.6-1.3); GLUCOSE 182 mg/dL (74-106); POTASSIUM 3.7 mmol/L (3.5-5.1); UREA NITROGEN, BLOOD 48 mg/dL (7-18)
[2024-09-04 07:13] LABS: SODIUM SERUM 159 mmol/L (136-145)
[2024-09-04 08:00] VITALS: BP 109/82; TEMP 98.1; O2SAT 99
[2024-09-04] MEDS: OLANZAPINE 2.5 MG TABLET GT SCH (09:08)
[2024-09-04] MEDS: PANTOPRAZOLE 40 MG/PACK PACK GT SCH (09:11)
[2024-09-04] MEDS: VANCOMYCIN 750 MG in IV D5W 250 ML IV SCH (09:15)
[2024-09-04] MEDS: MEROPENEM 1 G in IV NS 0.9% 100 ML IV SCH (10:38)
[2024-09-04 12:00] VITALS: BP 118/76; TEMP 97.9; O2SAT 99
[2024-09-04] MEDS: IV D5W 1,000 ML IV PRN (14:38)
[2024-09-04 16:00] VITALS: BP 105/60; TEMP 97.9; O2SAT 99
[2024-09-04 20:00] VITALS: BP 98/63; TEMP 99.1; O2SAT 100
[2024-09-05 00:20] VITALS: BP 98/63; TEMP 99.1; O2SAT 100
[2024-09-05 05:01] VITALS: BP 114/70; TEMP 99; O2SAT 99
[2024-09-05] MEDS: ACETAMINOPHEN 650 MG/20.3 ML UDC GT PRN (05:09)
[2024-09-05 07:54] LABS: BASOPHILS # (AUTO) 0.1 K/uL (0.0-0.2); BASOPHILS % (AUTO) 0.5 % (0.0-2.0); EOSINOPHILS # (AUTO) 0.6 K/uL (0.0-0.7); EOSINOPHILS % (AUTO) 5.7 % (0.0-6.0); HEMATOCRIT 23 % (39-51); HEMOGLOBIN 7.5 g/dL (13.5-17.5); LYMPHOCYTES # (AUTO) 1.6 K/uL (0.8-4.8); MEAN CORPUSCULAR HEMOGLOBIN 31 PG (26.0-33.0); MEAN CORPUSCULAR HGB CONC 33 g/dl (31.0-36.0); MEAN CORPUSCULAR VOLUME 95 fL (80-96); MONOCYTES # (AUTO) 0.6 K/uL (0.1-1.30); MONOCYTES % (AUTO) 5.6 % (2.0-12.0); NEUTROPHILS # (AUTO) 7.9 K/uL (1.8-8.9); NEUTROPHILS % (AUTO) 73.2 % (43.0-81.0); PLATELET COUNT (AUTO) 265 K/uL (150-450); RED BLOOD CELL COUNT(AUTO) 2.38 MIL/uL (4.5-6.0); WHITE BLOOD COUNT (AUTO) 10.8 K/uL (4.3-11.0)
[2024-09-05 08:00] VITALS: BP 101/61; TEMP 97.9; O2SAT 100
[2024-09-05 08:00] LABS: CALCIUM, SERUM 7.8 mg/dL (8.5-10.1); CARBON DIOXIDE 30 mmol/L (21-32); CHLORIDE 117 mmol/L (98-107); CREATININE 1.3 mg/dL (0.6-1.3); GLUCOSE 158 mg/dL (74-106); POTASSIUM 3.9 mmol/L (3.5-5.1); SODIUM SERUM 151 mmol/L (136-145); UREA NITROGEN, BLOOD 43 mg/dL (7-18)
[2024-09-05 10:09] LABS: PTH, INTACT 55 pg/mL (15-65)
[2024-09-05 12:00] VITALS: BP 101/61; TEMP 97.9; O2SAT 100
[2024-09-05 16:45] VITALS: BP 106/59; TEMP 98.1; O2SAT 100
[2024-09-05 20:00] VITALS: BP 117/64; TEMP 98.7; O2SAT 99
[2024-09-06 04:00] VITALS: BP 120/63; TEMP 98.3; O2SAT 99
[2024-09-06 05:00] VITALS: BP 120/63; TEMP 98.3; O2SAT 99
[2024-09-06 07:50] LABS: BASOPHILS # (AUTO) 0.1 K/uL (0.0-0.2); BASOPHILS % (AUTO) 0.5 % (0.0-2.0); EOSINOPHILS # (AUTO) 0.7 K/uL (0.0-0.7); EOSINOPHILS % (AUTO) 5.6 % (0.0-6.0); HEMATOCRIT 23 % (39-51); HEMOGLOBIN 7.7 g/dL (13.5-17.5); LYMPHOCYTES # (AUTO) 1.7 K/uL (0.8-4.8); LYMPHOCYTES % (AUTO) 12.5 % (20.0-44.0); MEAN CORPUSCULAR HEMOGLOBIN 32 PG (26.0-33.0); MEAN CORPUSCULAR HGB CONC 33 g/dl (31.0-36.0); MEAN CORPUSCULAR VOLUME 95 fL (80-96); MONOCYTES # (AUTO) 0.6 K/uL (0.1-1.30); MONOCYTES % (AUTO) 4.7 % (2.0-12.0); NEUTROPHILS # (AUTO) 10.2 K/uL (1.8-8.9); NEUTROPHILS % (AUTO) 76.7 % (43.0-81.0); PLATELET COUNT (AUTO) 251 K/uL (150-450); RED BLOOD CELL COUNT(AUTO) 2.43 MIL/uL (4.5-6.0); RED CELL DISTRIBUTION WIDTH 15.7 % (11.5-15.0); WHITE BLOOD COUNT (AUTO) 13.3 K/uL (4.3-11.0)
[2024-09-06 08:12] LABS: CALCIUM, SERUM 7.5 mg/dL (8.5-10.1); CARBON DIOXIDE 30 mmol/L (21-32); CHLORIDE 114 mmol/L (98-107); CREATININE 1.3 mg/dL (0.6-1.3); GLUCOSE 206 mg/dL (74-106); POTASSIUM 3.9 mmol/L (3.5-5.1); SODIUM SERUM 147 mmol/L (136-145); UREA NITROGEN, BLOOD 30 mg/dL (7-18)
[2024-09-06 09:07] LABS: *SPE A/G RATIO 0.5 (0.7-1.7); *SPE ALBUMIN 2.1 g/dL (2.9-4.4); *SPE ALPHA-1-GLOBULIN 0.4 g/dL (0.0-0.4); *SPE ALPHA-2-GLOBULIN 0.9 g/dL (0.4-1.0); *SPE BETA GLOBULIN 0.9 g/dL (0.7-1.3); *SPE GLOBULIN, TOTAL 4.2 g/dL (2.2-3.9); *SPE M-SPIKE 0.5 g/dL (Not Observed); *SPE PROTEIN TOTAL 6.3 g/dL (6.0-8.5)
[2024-09-06 13:00] VITALS: BP 123/62; TEMP 99.7; O2SAT 97
[2024-09-06 21:00] VITALS: BP 111/48; TEMP 98; O2SAT 99
[2024-09-06] MEDS: OLANZAPINE 2.5 MG TABLET GT SCH (21:27)
[2024-09-07 05:00] VITALS: BP 111/55; TEMP 98; O2SAT 100
[2024-09-07 07:28] LABS: BASOPHILS % (AUTO) 0.4 % (0.0-2.0); EOSINOPHILS # (AUTO) 0.6 K/uL (0.0-0.7); EOSINOPHILS % (AUTO) 4.3 % (0.0-6.0); HEMATOCRIT 26 % (39-51); HEMOGLOBIN 8.6 g/dL (13.5-17.5); LYMPHOCYTES # (AUTO) 1.7 K/uL (0.8-4.8); LYMPHOCYTES % (AUTO) 12.8 % (20.0-44.0); MEAN CORPUSCULAR HEMOGLOBIN 31 PG (26.0-33.0); MEAN CORPUSCULAR HGB CONC 33 g/dl (31.0-36.0); MEAN CORPUSCULAR VOLUME 94 fL (80-96); MONOCYTES # (AUTO) 0.8 K/uL (0.1-1.30); NEUTROPHILS # (AUTO) 10.1 K/uL (1.8-8.9); NEUTROPHILS % (AUTO) 76.5 % (43.0-81.0); PLATELET COUNT (AUTO) 277 K/uL (150-450); RED BLOOD CELL COUNT(AUTO) 2.76 MIL/uL (4.5-6.0); RED CELL DISTRIBUTION WIDTH 15.7 % (11.5-15.0); WHITE BLOOD COUNT (AUTO) 13.1 K/uL (4.3-11.0)
[2024-09-07 07:30] VITALS: BP 124/73; TEMP 99; TEMP 99.1; O2SAT 100
[2024-09-07 07:35] LABS: CREATININE 1.2 mg/dL (0.6-1.3); POTASSIUM 3.7 mmol/L (3.5-5.1)
[2024-09-07 13:00] VITALS: BP 130/87; TEMP 99; O2SAT 100
[2024-09-07 21:00] VITALS: BP 124/71; TEMP 98.3; O2SAT 99
[2024-09-08 05:00] VITALS: BP 121/63; TEMP 97.8; O2SAT 100
[2024-09-08 07:12] LABS: BASOPHILS # (AUTO) 0.1 K/uL (0.0-0.2); BASOPHILS % (AUTO) 0.7 % (0.0-2.0); EOSINOPHILS # (AUTO) 0.6 K/uL (0.0-0.7); EOSINOPHILS % (AUTO) 5.6 % (0.0-6.0); HEMATOCRIT 25 % (39-51); HEMOGLOBIN 8.6 g/dL (13.5-17.5); LYMPHOCYTES % (AUTO) 18.2 % (20.0-44.0); MEAN CORPUSCULAR HEMOGLOBIN 33 PG (26.0-33.0); MEAN CORPUSCULAR HGB CONC 34 g/dl (31.0-36.0); MEAN CORPUSCULAR VOLUME 95 fL (80-96); MONOCYTES # (AUTO) 0.9 K/uL (0.1-1.30); MONOCYTES % (AUTO) 8.4 % (2.0-12.0); NEUTROPHILS # (AUTO) 7.2 K/uL (1.8-8.9); NEUTROPHILS % (AUTO) 67.1 % (43.0-81.0); PLATELET COUNT (AUTO) 265 K/uL (150-450); RED BLOOD CELL COUNT(AUTO) 2.64 MIL/uL (4.5-6.0); RED CELL DISTRIBUTION WIDTH 16.5 % (11.5-15.0); WHITE BLOOD COUNT (AUTO) 10.7 K/uL (4.3-11.0)
[2024-09-08 07:21] LABS: CALCIUM, SERUM 8.1 mg/dL (8.5-10.1); CREATININE 1.2 mg/dL (0.6-1.3); POTASSIUM 3.9 mmol/L (3.5-5.1)
[2024-09-08 07:53] LABS: MAGNESIUM 2.1 mg/dL (1.8-2.4); PHOSPHORUS 3.7 mg/dL (2.5-4.9)
[2024-09-08 13:00] VITALS: BP 118/66; TEMP 97.9; O2SAT 98
[2024-09-08 20:00] VITALS: BP 116/73; TEMP 97.9; O2SAT 100
[2024-09-08] MEDS: INSULIN GLARGINE, 100 UNIT/ML CARTRIDGE SQ SCH (21:21)
[2024-09-09 04:00] VITALS: BP 112/66; TEMP 98.1; O2SAT 94
[2024-09-09 07:54] LABS: BASOPHILS # (AUTO) 0.1 K/uL (0.0-0.2); BASOPHILS % (AUTO) 0.9 % (0.0-2.0); EOSINOPHILS # (AUTO) 0.7 K/uL (0.0-0.7); EOSINOPHILS % (AUTO) 6.4 % (0.0-6.0); HEMATOCRIT 26 % (39-51); HEMOGLOBIN 8.6 g/dL (13.5-17.5); LYMPHOCYTES # (AUTO) 1.9 K/uL (0.8-4.8); LYMPHOCYTES % (AUTO) 18.1 % (20.0-44.0); MEAN CORPUSCULAR HEMOGLOBIN 32 PG (26.0-33.0); MEAN CORPUSCULAR HGB CONC 33 g/dl (31.0-36.0); MEAN CORPUSCULAR VOLUME 95 fL (80-96); MONOCYTES # (AUTO) 0.9 K/uL (0.1-1.30); MONOCYTES % (AUTO) 8.8 % (2.0-12.0); NEUTROPHILS # (AUTO) 6.8 K/uL (1.8-8.9); NEUTROPHILS % (AUTO) 65.8 % (43.0-81.0); PLATELET COUNT (AUTO) 280 K/uL (150-450); WHITE BLOOD COUNT (AUTO) 10.4 K/uL (4.3-11.0)
[2024-09-09 08:00] VITALS: BP 125/69; TEMP 97.7; O2SAT 100
[2024-09-09 08:19] LABS: CALCIUM, SERUM 8.2 mg/dL (8.5-10.1); CREATININE 1.1 mg/dL (0.6-1.3); POTASSIUM 3.9 mmol/L (3.5-5.1)
[2024-09-09 16:00] VITALS: BP 123/74; TEMP 97.9; O2SAT 99
== END 2024-09-09 17:01 | DRG 853 ==
LOC: ER 11:06 → TELE1 13:45 → MEDSG1 09-03 08:08
PROVIDERS: ADMIT Internal Medicine; ATTEND Internal Medicine
PROC: 0DP67UZ Removal of Feeding Device from Stomach, Via Natural or Artificial Opening (ICD-10-PCS; 2024-09-02)
PROC: 0DH63UZ Insertion of Feeding Device into Stomach, Percutaneous Approach (ICD-10-PCS; 2024-09-02)
PROC: 0JB70ZZ Excision of Back Subcutaneous Tissue and Fascia, Open Approach (ICD-10-PCS; principal; 2024-09-07)
DX: A41.9 Sepsis, unspecified organism (principal); E43 Unspecified severe protein-calorie malnutrition; G92.8 Other toxic encephalopathy; L89.154 Pressure ulcer of sacral region, stage 4; J69.0 Pneumonitis due to inhalation of food and vomit; N39.0 Urinary tract infection, site not specified; N17.9 Acute kidney failure, unspecified; N18.4 Chronic kidney disease, stage 4 (severe); F03.93 Unspecified dementia, unspecified severity, with mood disturbance; L97.419 Non-pressure chronic ulcer of right heel and midfoot with unspecified severity; F03.94 Unspecified dementia, unspecified severity, with anxiety; D68.9 Coagulation defect, unspecified; E87.0 Hyperosmolality and hypernatremia; I12.9 Hypertensive chronic kidney disease with stage 1 through stage 4 chronic kidney disease, or unspecified chronic kidney disease; Z66 Do not resuscitate; Z20.822 Contact with and (suspected) exposure to COVID-19; E78.5 Hyperlipidemia, unspecified; Z86.73 Personal history of transient ischemic attack (TIA), and cerebral infarction without residual deficits; R26.9 Unspecified abnormalities of gait and mobility; Z74.01 Bed confinement status; K21.9 Gastro-esophageal reflux disease without esophagitis; E11.22 Type 2 diabetes mellitus with diabetic chronic kidney disease; Z79.51 Long term (current) use of inhaled steroids; Z79.4 Long term (current) use of insulin; Z79.01 Long term (current) use of anticoagulants; Z79.899 Other long term (current) drug therapy; Z78.1 Physical restraint status; Z86.718 Personal history of other venous thrombosis and embolism; R13.10 Dysphagia, unspecified; Z98.890 Other specified postprocedural states; D50.9 Iron deficiency anemia, unspecified; D63.8 Anemia in other chronic diseases classified elsewhere; D69.6 Thrombocytopenia, unspecified; E11.621 Type 2 diabetes mellitus with foot ulcer; E86.0 Dehydration; E11.65 Type 2 diabetes mellitus with hyperglycemia; Z87.828 Personal history of other (healed) physical injury and trauma; Z93.1 Gastrostomy status
CPT/HCPCS: 36415; 70450-TC; 71045-TC; 74018; 80048-TC; 80053-TC; 80061-TC; 80076-TC; 80202-TC; 81001; 82550-TC; 82962-TC; 83605-TC; 83735-TC; 83970; 84100-TC; 84155; 84165; 84443-TC; 84484-TC; 85025-TC; 85730-TC; 87040-TC; 87086-TC; 92526; 92611-TC; 94799-TC; 97110-TC; 97530-TC; A4223; G0378; J1815; J2060; J2185; J2470; J3371; J3490; J7030; J7060; J7070; Q9963